=== PATIENT | female | born 1965 | race Caucasian/White ===

== ENCOUNTER 2017-08-02 07:12 | Day surgery (SDC) | payer OTHER ==
[2017-08-02] MEDS ORDERED: MIDAZOLAM 1 MG/ML 2 ML INJ ×2 (09:35)
[2017-08-02] MEDS ORDERED: FENTAnyl 50 MCG/ML VIAL (09:35)
== END 2017-08-02 14:45 | disposition home or self-care (01) ==
LOC: GIL 07:12
DX: Z12.11 Encounter for screening for malignant neoplasm of colon (principal); K29.30 Chronic superficial gastritis without bleeding
CPT/HCPCS: 43239; 84703; 88305; 88312

== ENCOUNTER 2018-05-05 05:37 | Day surgery (SDC) | payer OTHER ==
[2018-05-05] MEDS ORDERED: CEFAZOLIN 2 GM/50 ML (PMX) 50 ML IVPB (06:00)
[2018-05-05] MEDS ORDERED: ONDANSETRON 4 MG INJ IV (06:30)
[2018-05-05] MEDS ORDERED: DIPHENHYDRAMINE 50 MG INJ IV (06:30)
[2018-05-05] MEDS ORDERED: FENTAnyl 50 MCG/ML VIAL IV ×2 (06:30)
[2018-05-05] MEDS ORDERED: OXYCODONE/ACETAMINOPHEN (5/325) TAB PO ×2 (06:30)
[2018-05-05] MEDS ORDERED: LABETALOL HCL 20MG INJ IV (06:30)
[2018-05-05] MEDS ORDERED: ATROPINE 1 MG/10 ML SYRINGE IV (06:30)
[2018-05-05] MEDS ORDERED: morphine (1 MG/ML) 10ML SYRINGE IV ×3 (06:30)
[2018-05-05] MEDS ORDERED: HYDROmorphONE 1 MG/5 ML IV SYRINGE IV ×3 (06:30)
[2018-05-05] MEDS ORDERED: hydrALAzine 20 MG INJ IV (06:30)
[2018-05-05] MEDS ORDERED: MIDAZOLAM 1 MG/ML 2 ML INJ IV (06:30)
[2018-05-05] MEDS ORDERED: MEPERIDINE 25 MG INJ IV (06:30)
[2018-05-05] MEDS ORDERED: EPHEDrine SULFATE 50 MG/5 ML SYG IV (06:30)
[2018-05-05] MEDS: LACTATED RINGER'S 1,000 ML IV* (06:40)
[2018-05-05] MEDS ORDERED: ROCURONIUM 50 MG INJ (06:53)
[2018-05-05] MEDS ORDERED: PROPOFOL 20 ML (06:53)
[2018-05-05] MEDS ORDERED: GLYCOPYRROLATE 1 MG INJ (06:53)
[2018-05-05] MEDS ORDERED: NEOSTIGMINE 3 MG/3 ML SYRINGE (06:53)
[2018-05-05] MEDS ORDERED: LIDOCAINE 2% (SDV) 5 ML INJ (06:53)
[2018-05-05] MEDS ORDERED: MIDAZOLAM 1 MG/ML 2 ML INJ (06:54)
[2018-05-05] MEDS ORDERED: CEFAZOLIN 1 GM INJ (07:00)
[2018-05-05] MEDS ORDERED: SEVOFLURANE 15 MIN (07:00)
[2018-05-05] MEDS ORDERED: DEXAMETHASONE 4 MG/ML 1 ML INJ ×2 (07:21→10:20)
[2018-05-05] MEDS ORDERED: SUGAMMADEX SODIUM 200 MG/2 ML VIAL IV (08:59)
[2018-05-05] MEDS ORDERED: ONDANSETRON 4 MG INJ (10:35)
== END 2018-05-05 10:42 | disposition home or self-care (01) ==
LOC: SDS 05:37
DX: N95.0 Postmenopausal bleeding (principal); D25.9 Leiomyoma of uterus, unspecified; I10 Essential (primary) hypertension; E11.9 Type 2 diabetes mellitus without complications; D64.9 Anemia, unspecified
CPT/HCPCS: 58561; 88305; 93005

== ENCOUNTER 2019-01-23 11:36 | Day surgery (SDC) | payer OTHER ==
[2019-01-23] MEDS: SOD CHLORIDE 0.9% 1,000 ML IV (13:05)
[2019-01-23 14:04] LABS: INR 0.92; PROTIME 12.5 Sec (11.9-14.9)
[2019-01-23 14:05] LABS: PARTIAL THROMBOPLASTIN TIME 34.4 Sec (23.0-35.0)
[2019-01-23] MEDS: FENTAnyl 50 MCG/ML VIAL (15:37)
[2019-01-23] MEDS: LIDOCAINE 1% (MDV) 20 ML INJ (15:38)
== END 2019-01-23 17:33 | disposition home or self-care (01) ==
LOC: SDS 11:36
DX: I12.9 Hypertensive chronic kidney disease with stage 1 through stage 4 chronic kidney disease, or unspecified chronic kidney disease (principal); N18.9 Chronic kidney disease, unspecified
CPT/HCPCS: 47000; 77012; 85610; 85730